=== PATIENT | female | born 1965 | race Caucasian/White ===

== ENCOUNTER 2021-05-18 13:56 | Outpatient (CLI) | payer OTHER, SELFPAY ==
--- NOTE | ~2021-05-18 | DEXA_ITS ---
Bone Density Report Name: Tara Bear Age: 55 Sex: Female Ethnicity: White Date of : 1965 Indication: postmenopausal; Referring Provider: Elisa Cordero Study: Bone densitometry was performed. Exam Date: May 18, 2021 Accession number: [id number] Bone Density: Region BMD T-score Z-score Classification AP Spine (L1, L3, L4) 1.103 0.5 1.5 Normal Femoral Neck (Left) 0.839 -0.1 0.9 Normal Total Hip (Left) 0.961 0.2 0.8 Normal Total Hip Bilateral Avg 0.985 0.4 1.0 Normal Femoral Neck (Right) 0.846 0.0 1.0 Normal Total Hip (Right) 1.009 0.6 1.2 Normal World Health Organization criteria for BMD impression classify patients as: Normal (T-score at or above -1.0), Osteopenia (T-score between -1.0 and -2.5), or Osteoporosis (T-score at or below -2.5). 10-year Fracture Risk: FRAX not reported because: All T-scores for Spine Total, Hip Total, Femoral Neck at or above -1.0 Clinical Information Provided by Patient: Has used the following medications: Vitamin D, Calcium Patient maximum height was 62 Menopause Age: 53 No regular weight bearing exercise Drinks caffeinated beverages Onset of menses at age 14 Number of children 0 Impression: The patient has normal bone mass. Discussion: BONE DENSITY IS ABOVE THE MINIMUM DESIRABLE LEVEL AT ALL SKELETAL SITES TESTED. This patient?s bone mineral density is above the minimum desirable level (T-score -1.0 or better) at all sites measured. The patient should follow a healthful lifestyle (good nutrition with adequate calcium and vitamin D, and appropriate weight-bearing exercise). Follow-Up: Consider repeating this study in 5 years or sooner if there is some new clinical indication. Reported by: LORRIE on 05/18/2021 2:21:00 PM. Reviewed, dictated and finalized at location [facility]
== END 2021-05-18 13:57 | disposition home or self-care (01) ==
LOC: ANHIMG 14:02
PROVIDERS: PCP Internal Medicine; Visit Provider Nurse Practitioner
DX: Z78.0 Asymptomatic menopausal state (principal)
CPT/HCPCS: 77080